=== PATIENT | female | born 1965 | race Caucasian/White ===

== ENCOUNTER 2022-05-03 02:31 | Emergency (ER) | payer OTHER, SELFPAY ==
[2022-05-03] VITALS (7 sets, daily range): BP systolic 105–123; BP diastolic 47–76; PULSE 81–100; RESP 18–20; TEMP 36.8; O2SAT 92–98
--- NOTE | ~2022-05-03 | CT_ITS ---
EXAMINATION: CTA chest PE protocol DATE: 05/03/2022 05:45 INDICATION: Chest pain. Shortness of breath. TECHNIQUE: Computed tomography angiography (CTA) of the chest was performed with 100 mL Omnipaque-350 intravenous contrast timed to evaluate the pulmonary arteries. Coronal maximum intensity projection 3D-reconstructions were created by the technologist. Automated exposure control and iterative reconst ruction technique were employed. The dose-length product was 257.93 mGy-cm. COMPARISON: None. FINDINGS: The lungs demonstrate mild atelectasis. There are airspace opacities in anterobasal segment right lower lobe. There is a small right pleural effusion. The heart size is normal. No pericardial effusion. There is no pulmonary embolus. There are changes of cholecystectomy. There is mild thoracic spondylosis. IMPRESSION: 1. No pulmonary embolus. 2. Airspace opacities in anterobasal segment right lower lobe, consistent with pneumonia. 3. Small right pleural effusion. Reviewed, dictated and finalized at location A.
--- NOTE | ~2022-05-03 | XR_ITS ---
EXAMINATION: XR chest 1V portable DATE: 05/03/2022 05:59 INDICATION: Chest pain. TECHNIQUE: A single frontal view of the chest was obtained. COMPARISON: Chest CT 05/03/2022 FINDINGS: There are airspace opacities in right lower lobe, consistent with pneumonia. No pleural eff usion or pneumothorax and the heart size is normal. Surgical clips in the right upper quadrant are richelle casanovay from cholecystectomy. IMPRESSION: 1. Airspace opacities in right lower lobe, consistent with pneumonia. Follow-up radiographs are recom mended in a few weeks to confirm resolution. Reviewed, dictated and finalized at location A. IMPRESSION: 1. Airspace opacities in right lower lobe, consistent with pneumonia. Follow-up radiographs are recommended in a few weeks to confirm resolution.
[2022-05-03] MEDS: SODIUM CHLORIDE 0.9% IV 1,000 ML 999 ML IV CONT (04:33)
[2022-05-03] MEDS: MORPHINE SULFATE (*CRX) 4 MG/ML INJ IV PUSH (04:34)
[2022-05-03] MEDS: ONDANSETRON INJ 4 MG/2 ML VIAL IV PUSH (04:34)
[2022-05-03 04:43] LABS: Basophils Absolute Auto 0.1 K/mm3 (0.0-0.1); Basophils Percent Auto 0.4 % (0.2-1.2); Eosinophils Absolute Auto 0.1 K/mm3 (0-0.3); Eosinophils Percent Auto 1.1 % (0-4.4); Hematocrit 41.2 % (37.0-47.0); Hemoglobin 13.7 g/dL (12.0-15.0); Immature Granulocyte Absolute 0.06 K/mm3 (0.00-0.031); Immature Granulocyte Percent A 0.5 % (0-0.5); Lymphocytes Absolute Auto 1.15 K/mm3 (0.9-3.2); Lymphocytes Percent Auto 9.6 % (18.3-44.2); Mean Corpuscular HGB Conc 33.3 g/dl (32-36); Mean Corpuscular Hemoglobin 32.1 pg (26-34); Mean Corpuscular Volume 96.5 fl (80-100); Mean Platelet Volume 10.3 fl (7.4-10.4); Monocytes Absolute Auto 1.1 K/mm3 (0.1-0.6); Monocytes Percent Auto 9.4 % (2.6-8.5); Neutrophils Absolute Auto 9.4 K/mm3 (1.3-6.7); Platelet Count Result 208 k/mm3 (150-375); Red Blood Count 4.27 M/mm3 (4.2-5.4); Red Cell Distribution Width 11.1 % (11.5-14.5); White Blood Count 11.9 K/mm3 (4.5-10.0)
[2022-05-03 04:53] LABS: INR 1.1
[2022-05-03 04:54] LABS: Lactic Acid Reflex 1.1 mmol/L (0.7-2.0)
[2022-05-03 04:56] LABS: Alanine Aminotransferase 14 U/L (6-35); Albumin Level 4.3 g/dL (3.5-5.1); Alkaline Phosphatase 60 U/L (38-126); Anion Gap 5 mmol/L (8-16); Aspartate Amino Transferase 21 U/L (14-36); Bilirubin,Total 0.7 mg/dL (0.2-1.3); Blood Urea Nitrogen 9 mg/dL (7-17); Carbon Dioxide 24 mmol/L (22-30); Chloride 103 mmol/L (98-107); Estimated CRCL calculation 71 ml/min; Estimated Glomerular Filt Rate > 60; Glucose 114 mg/dL (65-110); Magnesium 1.9 mg/dL (1.6-2.3); Potassium 4.3 mmol/L (3.4-5.0); Sodium 132 mmol/L (137-145)
[2022-05-03 05:07] LABS: Troponin I < 0.012 ng/mL (0.000-0.034)
[2022-05-03 05:25] LABS: Procalcitonin 0.1 ng/mL
--- NOTE | 2022-05-03 05:52 | ED.GENADULT ---
HPI - General Adult General Chief complaint: Back Pain/Injury Stated complaint: Back Pain Time Seen by Provider: 05/03/22 04:09 History of Present Illness HPI narrative: Patient 57-year-old female who presents the emergency department with chief complaint of right-sided pleuritic back pain. The patient states that the pain started today reports it is sharp reports she is unable to get a good deep breath. Patient states the pain is worse with inspiration and improved with rest and shallow breaths. Patient denies diaphoresis denies radiation. Patient reports no prior history of cardiac disease. Related Data Allergies Allergy/AdvReac Type Severity Reaction Status Date / Time No Known Allergies Allergy Verified 05/03/22 04:03 Review of Systems Review of Systems: A 10 system review of systems was completed on the patient and is negative except for what is stated in the HPI. Nursing and ancillary documentation was reviewed. [facility] Family History Family History Mother Hypertension, Onset Age: 73 Father Carcinoma of colon, Onset Age: 77 Social History Social History Smoking status: Former smoker Second hand tobacco smoke exposure: No Smoking end date: 09/01/91 Alcohol intake: current Exam Narrative: GENERAL: Well-appearing, well-nourished, and in no acute distress. HEAD: Normocephalic, atraumatic. EYES: PERRLA and EOMI. ENT: Nares clear, no rhinorrhea or epistaxis. Mucous membranes moist. NECK: Supple. CHEST: Clear to auscultation. No respiratory distress. HEART: Regular rate and rhythm. No murmur heard. Normal peripheral pulses. ABDOMEN: Soft, nontender, nondistended, normal active bowel sounds. EXTREMITIES: Normal range of motion. No edema. SKIN: Warm, dry, no rash. NEURO: No focal deficits. Alert and oriented x3. PSYCH: Normal mood and affect. Course Vital Signs Vital signs: Vital Signs Temperature 36.8 C 05/03/22 02:36 Pulse Rate 100 05/03/22 02:36 Respiratory Rate 20 05/03/22 02:36 Blood Pressure 122/68 05/03/22 02:36 Pulse Oximetry 97 05/03/22 02:36 Oxygen Delivery Room Air 05/03/22 02:36 Temperature 36.8 C 05/03/22 02:36 Pulse Rate 100 05/03/22 02:36 Respiratory Rate 20 05/03/22 02:36 Blood Pressure 107/67 05/03/22 06:31 Pulse Oximetry 96 05/03/22 06:31 Oxygen Delivery Room Air 05/03/22 02:36 Medical Decision Making Vital Signs Vital Signs: Vital Signs Temperature 36.8 C 05/03/22 02:36 Pulse Rate 100 05/03/22 02:36 Respiratory Rate 20 05/03/22 02:36 Blood Pressure 122/68 05/03/22 02:36 Pulse Oximetry 97 05/03/22 02:36 Oxygen Delivery Room Air 05/03/22 02:36 Temperature 36.8 C 05/03/22 02:36 Pulse Rate 100 05/03/22 02:36 Respiratory Rate 20 05/03/22 02:36 Blood Pressure 107/67 05/03/22 06:31 Pulse Oximetry 96 05/03/22 06:31 Oxygen Delivery Room Air 05/03/22 02:36 Lab Data Result diagrams: 05/03/22 04:36 05/03/22 04:36 Labs: Lab Results 05/03/22 05/03/22 05/03/22 Range/Units 04:36 04:36 04:36 WBC 11.9 H (4.5-10.0) K/mm3 RBC 4.27 (4.2-5.4) M/mm3 Hgb 13.7 (12.0-15.0) g/dL Hct 41.2 (37.0-47.0) % MCV 96.5 (80-100) fl MCH 32.1 (26-34) pg MCHC 33.3 (32-36) g/dl RDW 11.1 L (11.5-14.5) % Plt Count 208 (150-375) k/mm3 MPV 10.3 (7.4-10.4) fl Immature Gran % (Auto) 0.5 (0-0.5) % Neut % (Auto) 79.0 H (45.5-73.1) % Lymph % (Auto) 9.6 L (18.3-44.2) % [place] % (Auto) 9.4 H (2.6-8.5) % Eos % (Auto) 1.1 (0-4.4) % Baso % (Auto) 0.4 (0.2-1.2) % Lymph # (Auto) 1.15 (0.9-3.2) K/mm3 [place] # (Auto) 1.1 H (0.1-0.6) K/mm3 Eos # (Auto) 0.1 (0-0.3) K/mm3 Baso # (Auto) 0.1 (0.0-0.1) K/mm3 Abs Immat Gran (auto) 0.06 H (0.00-0.03
[2022-05-03] MEDS: HYDROcodone/acetaminophen (*CRX) 5-325 MG TABLET 1 TAB PO (07:14)
--- NOTE | 2022-05-03 07:28 | PC.NURSE ---
Per EDP Suzanne, no 3 hour troponin or EKG needed at time of discharge.
== END 2022-05-03 07:32 | disposition home or self-care (01) ==
PROVIDERS: Emergency Provider Emergency Medicine; PCP Family Medicine
DX: J18.9 Pneumonia, unspecified organism (principal); R07.1 Chest pain on breathing; Z87.891 Personal history of nicotine dependence; R07.9 Chest pain, unspecified
CPT/HCPCS: 36415; 71045; 71275; 80053; 83605; 83735; 84145; 84484; 85025; 85610; 85730; 96361; 96374; 96375; 99284; A9270; J2270; J2405; J7030; Q9967